=== PATIENT | female | born 1965 | race Caucasian/White ===

== ENCOUNTER 2023-12-21 16:12 | Emergency (ER) | payer OTHER ==
[~2023-12-21] VITALS: Ht 160 cm; Wt 80.9 kg
[2023-12-21 16:56] VITALS: BP 155/80; PULSE 95; RESP 18; TEMP 98.7; O2SAT 95
[2023-12-21] MEDS: ACETAMINOPHEN 500 MG TAB PO ONE (17:20)
[2023-12-21] MEDS: KETOROLAC TROMETH 30 MG/ML 1ML VIAL IM ONE (17:21)
[2023-12-21] MEDS ORDERED: MELO7.5T7 PO (17:55)
[2023-12-21] MEDS ORDERED: ACET500T58 PO (17:55)
[2023-12-21] MEDS ORDERED: LIDO5CRE14 EX (18:01)
== END 2023-12-21 17:57 | disposition home or self-care (01) ==
LOC: ER 16:12
DX: M54.2 Cervicalgia (principal); M25.511 Pain in right shoulder; W18.09XA Striking against other object with subsequent fall, initial encounter; Y93.89 Activity, other specified; Y92.89 Other specified places as the place of occurrence of the external cause; Y99.8 Other external cause status
CPT/HCPCS: 72040; 73030; 96372; 99284; J1885

== ENCOUNTER 2025-03-14 08:40 | Outpatient (CLI) | payer BC ==
[~2025-03-14 08:40] MED LIST: ACET500T58 PO; LIDO5CRE14 EX; MELO7.5T7 PO
[2025-03-14 09:26] LABS: Urine Protein, UAD Negative (Negative)
[2025-03-14 09:28] LABS: Hematocrit 37.6 % (36.0-46.0); Hemoglobin 13.0 g/dL (12.2-16.2); Mean Corpuscular Hemoglobin 30.3 pg (28.0-32.0); Mean Corpuscular Volume 87.3 fL (80.0-100.0); Nucleated Red Blood Cells % 0.1 %
[2025-03-14 09:41] LABS: Alanine Aminotransferase 18 U/L (7-40); Albumin 4.6 g/dL (3.2-4.8); Alkaline Phosphatase 102 U/L (46-116); Calcium 9.1 mg/dL (8.7-10.4); Chloride 103 mmol/L (98-107); Triglycerides 97 mg/dL (< 150)
[2025-03-14 09:42] LABS: Anion Gap 10 (5-15); BUN/Creatinine Ratio 22.2 (10.0-20.0); Bilirubin, Total 0.3 mg/dL (0.2-1.0); Blood Urea Nitrogen 18 mg/dL (9-23); Carbon Dioxide 27 mmol/L (20-31); Cholesterol 196 mg/dL (< 200); Magnesium 1.9 mg/dL (1.6-2.6); Potassium 3.8 mmol/L (3.5-5.1); Sodium 140 mmol/L (136-145); Total Protein 7.4 g/dL (5.7-8.2)
[2025-03-14 09:46] LABS: Glucose 115 mg/dL (74-106); HDL Cholesterol 65 mg/dL (40-59)
[2025-03-14 10:19] LABS: Uric Acid 5.9 mg/dL (3.1-7.8)
[2025-03-14 10:24] LABS: Free T4 (Free Thyroxine) 1.13 ng/dL (0.89-1.76)
[2025-03-14 10:25] LABS: Ferritin 44.3 ng/mL (10-291)
== END 2025-03-14 17:00 | disposition home or self-care (01) ==
LOC: LAB 08:40
PROVIDERS: ATTEND Family Medicine
DX: M25.512 Pain in left shoulder (principal); R68.89 Other general symptoms and signs; R79.89 Other specified abnormal findings of blood chemistry; Z71.89 Other specified counseling
CPT/HCPCS: 36415; 80053; 80061; 81001; 82306; 82607; 82728; 82746; 83036; 83735; 84439; 84443; 84550; 85025; 87086